=== PATIENT | female | born 1950 | race Caucasian/White ===

== ENCOUNTER 2020-01-02 12:39 | Emergency (ER) | payer MEDICARE, SELFPAY ==
[2020-01-02 12:39] VITALS: BP 165/98; PULSE 88; RESP 16; O2SAT 96
[2020-01-02 12:40] VITALS: BP 165/98; PULSE 87; RESP 23; TEMP 36.8; O2SAT 95; BMI 26.3
--- NOTE | 2020-01-02 13:32 | EKG12_ITS ---
Test Reason : CP Blood Pressure : / mmHG Vent. Rate : 084 BPM Atrial Rate : 084 BPM P-R Int : 148 ms QRS Dur : 088 ms QT Int : 370 ms P-R-T Axes : 061 049 058 degrees QTc Int : 437 ms Normal sinus rhythm Normal ECG Confirmed by JUAN CARLOS GUNDERSON ([id number]), technical editor ALFA CASTELLANOS ([id number] on 01/05/2020 11:01:39 AM Referred By: ROSIBEL Confirmed By:JUAN CARLOS GUNDERSON
[2020-01-02 13:47] LABS: Basophil# 0.04 X10^3/uL; Basophil% 0.4 % (0-1); Eosinophil# 0.11 X10^3/uL; Eosinophils% 1.2 % (0-5); Hematocrit 42.8 % (37-47); Hemoglobin 12.9 g/dL (12.0-15.0); Lymphocyte % 14.4 % (19-41); Mean Corp Hgb Conc 30.1 g/dL (32-36); Mean Corpuscular Hgb 26.4 pg (27.0-32.0); Mean Corpuscular Volume 87.5 fL (81-99); Mean Platelet Vol. 10.4 fl (6.2-12.0); Monocyte# 0.55 X10^3/uL; Monocyte% 6.1 % (0-10); NRBC Flagged by Analyzer 0 % (0-5); Neutrophil # 7.02 X10^3/uL (2.7-7.7); Neutrophil % 77.7 % (47-70); Platelet Count 290 K/mm3 (150-450); RBC Distribution Width CV 14.2 % (11.6-14.6); RBC Distribution Width SD 45.5 fl (35.1-43.9); Red Blood Count 4.89 M/mm3 (4.2-5.4)
[2020-01-02] MEDS: 0.9% Normal Saline 1,000 ML 1000 ML IV (13:48)
[2020-01-02 13:51] LABS: Partial Thromboplast Time 25.4 Seconds (24.1-36.2); Prothrombin Time (Protime)PT. 13.1 SECONDS (11.7-14.9)
--- NOTE | 2020-01-02 14:00 | ED.DCSUM_ITS ---
History of Present Illness Informant: Patient Onset: Weeks Activity at onset: Light Activity Timing: Intermittent, Lasts Quality: Heaviness, Pressure Location: Substernal - without radiation Current Severity: Gone Maximum Severity: Moderate Worsened By: Exertion Relieved By: Rest - after 10 min or so Associated Symptoms: Lightheadedness, - - malasie/weakness. Negative for: Nausea, Vomiting, Diaphoresis, Dyspnea, Cough, Fever, Palpitations Narrative: Patient has been having chest discomfort off and on for several weeks, it is sometimes exertional but not always. This morning she was lifting some lumber from [employer] to try to purchase it, she had significant discomfort and had to stop and rest until it went away, 10-15 minutes. This is been occurring fairly frequently, her last episode was last night. This morning she also had a single bout of melena, she did not see any bright red blood, it looked black and tarry. She does admit to taking some Pepto-Bismol for what felt like heartburn in her upper abdomen/epigastrium earlier in the week with that was for 5 days ago and she just took it once. She does not take iron. She is on no antiplatelet or anticoagulants and has no known history of heart disease, she has had a normal stress test she cannot remember how long ago. She denies any nausea or vomiting. States she is on pantoprazole for hiatal hernia/GERD. Has been feeling malaised and lightheaded without near syncope or syncope for the past week or 2. <Segundo Gross - Last Filed: 01/02/20 15:25> <Amadou Velasquez - Last Filed: 01/02/20 16:31> Chief Complaint: Chest Pain - Past Medical History (1) Hypertension Status: Chronic (2) Hyperlipidemia Status: Chronic (3) Type 2 diabetes mellitus Status: Chronic (4) Hiatal hernia Status: Chronic (5) GERD (gastroesophageal reflux disease) Status: Chronic <Segundo Gross - Last Filed: 01/02/20 15:25> Past Medical History Smoking Status: Never smoker Alcohol: None Drugs: None <Segundo Gross - Last Filed: 01/02/20 15:25> <RonAmadou - Last Filed: 01/02/20 16:31> - Allergies and Home Meds Allergies/Adverse Reactions: Allergies No Known Allergies Allergy (Verified 05/29/20 12:39) Primary Care Physician: Александр Marshall MD [Primary Care Provider] - 3-5 Days Review of Systems General: Reports: Malaise. Denies: Chills, Fever, Sweats Eyes: Denies: Visual changes - bilaterally, Diplopia ENT: Denies: Rhinorrhea, Sore throat Cardiovascular: Reports: Chest pain. Denies: Palpitations, Heart racing Respiratory: Denies: Dyspnea, Cough, Dyspnea on exertion Gastrointestinal: Reports: Melena. Denies: Abdominal pain, Nausea, Vomiting, Diarrhea, Hematochezia Genitourinary: Denies: Dysuria, Hematuria, Frequency Musculoskeletal: Denies: Neck pain, Back pain, Swelling, Extremity Pain Skin: Denies: Rash, Wounds Neurological: Denies: Headache, Weakness, Numbness <Segundo Gross - Last Filed: 01/02/20 15:25> Physical Exam Vital Signs/Narrative: Vital Signs Temp Pulse Resp BP Pulse Ox 01/02/20 12:40 98.2 F 87 23 H 165/98 H 95 01/02/20 12:39 88 16 165/98 H 96 Inital Vital Signs reviewed: Yes General: Well nourished, Well developed, No Acute Distress Head: Normocephalic, Atraumatic Eyes: Perrl, EOMI ENT: Moist mucous membranes, No rhinorrhea Neck: Supple, Nontender, No lymphadenopathy Cardiovascular: Regular rate, Regular rhythm, No murmurs Respiratory: No distress, CTA bilaterally, Chest nontender Abdomen: Soft, Nontender, Nondistended, Normal bowel sounds Back: Nontender, Normal Inspection. Negative for: CVA tenderness Extremities: Nontender, No edema. Negative for: Calf Tenderness Skin: Normal color, No rash Neurological: Alert, Oriented x3, Cranial nerves II-XII grossly intact, Normal Strength, Normal Sensation, Normal Gait Psychological: Normal affect, Normal Mood <Segundo Gross - Last Filed: 01/02/20 15:25> Vital Signs/Narrative: Vital Signs Temp Pulse Resp BP Pulse Ox 01/02/20 15:59 149/79 H 01/02/20 14:45 76 24 H 158/75 H 99 01/02/20 12:40 98.2 F 87 23 H 165/98 H 95 01/02/20 12:39 88 16 165/98 H 96 <Velasquez,Amadou - Last Filed: 01/02/20 16:31> Diagnostic/Tx/Re-eval Impressions Chest X-Ray 01/02/20 14:04 IMPRESSION: Large hiatal hernia. Electronically Signed: Milton Lopez, at 14:21 EDT , Service support , 01/02/20 14:04 Chest 1 View (Portable) [RAD] Stat 01/02/20 14:40 Stool Stool Occult Blood (EVELYNE) - Final Laboratory Results 01/02/20 01/02/20 01/02/20 12:45 12:45 12:45 WBC 9.0 RBC 4.89 Hgb 12.9 Hct 42.8 MCV 87.5 MCH 26.4 L MCHC 30.1 L RDW Std Deviation 45.5 H RDW Coeff of [place] 14.2 Plt Count 290 MPV 10.4 Immature Gran % (Auto) 0.200 Neut % (Auto) 77.7 H Lymph % (Auto) 14.4 L [place] % (Auto) 6.1 Eos % (Auto) 1.2 Baso % (Auto) 0.4 Absolute Neuts (auto) 7.0 Absolute Lymphs (auto) 1.30 Nucleated RBC % 0 PT 13.1 INR 1.0 APTT 25.4 Sodium 142 Potassium 3.8 Chloride 109 H Carbon Dioxide 24.0 Anion Gap 9 BUN 11 Creatinine 0.79 Estim Creat Clear Calc 48.30 Est GFR (MDRD) Af Amer 92 Est GFR (MDRD) Non-Af 76 BUN/Creatinine Ratio 13.9 Glucose 164 H Calcium 9.2 Troponin I < 0.015 POC Glucose Blood Type Antibody Screen 01/02/20 01/02/20 13:45 13:54 WBC RBC Hgb Hct MCV MCH MCHC RDW Std Deviation RDW Coeff of [place] Plt Count MPV Immature Gran % (Auto) Neut % (Auto) Lymph % (Auto) [place] % (Auto) Eos % (Auto) Baso % (Auto) Absolute Neuts (auto) Absolute Lymphs (auto) Nucleated RBC % PT INR APTT Sodium Potassium Chloride Carbon Dioxide Anion Gap BUN Creatinine Estim Creat Clear Calc Est GFR (MDRD) Af Amer Est GFR (MDRD) Non-Af BUN/Creatinine Ratio Glucose Calcium Troponin I POC Glucose 138 H Blood Type B POSITIVE Antibody Screen NEGATIVE - Rhythm Strip Rhythm Strip: Sinus Rhythm Rate: 84 Ectopy: None - EKG Initial EKG Interpretation: Sinus Rhythm, No Acute Injury Pattern Repeat Eval: Pain Free VIVI Risk: Age >/= 65, >/= 3RF Score: 2 - Medical Decision Making Work-up is reassuringly unremarkable. She is not anemic, has no elevation of her BUN, and has a negative Hemoccult stool. With all of this, she unlikely has acute GI bleeding now or earlier this morning. Her EKG and troponin are negative/normal. I discussed with the patient she is feeling well now, still a little lightheaded sometimes when she stands but not near syncopal, we discussed admission versus DC home. She had a nuclear stress test 3 or 4 years ago that was negative. She does not want to stay here in the hospital. Therefore I discussed doing a delta troponin with 2 measurements 3 hours apart, which she is amenable to. If negative, plan is discharge home close outpatient follow-up, unknown if her chest discomfort is related to her large hiatal hernia and reflux or if this is cardiac, it is not always exertional to suggest this is definitely angina. <Segundo Gross - Last Filed: 01/02/20 15:25> - Medical Decision Making Patient presents with atypical chest pain. The pain is not necessarily related to exertion. Patient does have history of GERD on Protonix. Patient's EKG, troponin normal and troponin #2 were both normal with a delta of 0. With atypical presentation normal 3-hour delta troponin will discharge to home to follow-up with PCP for further work-up. <Amadou Velasquez - Last Filed: 01/02/20 16:31> ED Disposition <Segundo Gross - Last Filed: 01/02/20 15:25> <Amadou Velasquez - Last Filed: 01/02/20 16:31> - Plan for ED Patient: Disposition: Home or Assisted Living Diagnosis: Intermittent chest pain, Black stool Instructions: ED Chest Pain Atypical Unkn Cause Referrals: Александр Marshall MD [Primary Care Provider] - 3-5 Days
[2020-01-02 14:01] LABS: Bedside Glucose 138 mg/dL (70-110)
[2020-01-02 14:01] LABS: Anion Gap 9 (5-15); BUN 11 mg/dL (7-18); BUN/Creat Ratio 13.9 RATIO (10-20); Calcium,Total 9.2 mg/dL (8.5-10.1); Chloride 109 mmol/L (98-107); Creatinine, Serum 0.79 mg/dL (0.55-1.02); EST Glomerular Filtration Rate 76 mL/min (>60); Est Glom Filt Rate - Afr Amer 92 mL/min (>60); Glucose 164 mg/dL (74-106); Potassium 3.8 mmol/L (3.5-5.1); Sodium Level 142 mmol/L (136-145)
--- NOTE | 2020-01-02 14:04 | RAD_ITS ---
STUDY: X-RAY CHEST REASON FOR EXAM: Female, 69 years old. EPIGASTRIC MIDLINE CHEST PRESSURE x COUPLE WEEKS TECHNIQUE: Single AP portable view of the chest. COMPARISON: None. FINDINGS: EKG electrodes are seen. Hyperinflation. The lungs are clear. There is no demonstrated pleural abnormality. Normal size heart. Normal mediastinum and michelle. Normal visualized pulmonary arteries. Normal visualized aortic arch and descending thoracic aorta. Normal visualized thoracic spine. There is a 3.5 cm x 1.5 cm sclerotic abnormality in the proximal metaphysis of the left humerus most likely representing chondroid calcification or healed bone infarct. Large hiatal hernia. RAD/Chest 1 View (Portable) IMPRESSION: Large hiatal hernia. Electronically Signed: Milton Lopez, at 14:21 EDT , Service support ,
[2020-01-02 14:45] VITALS: BP 158/75; PULSE 76; RESP 24; O2SAT 99
[2020-01-02 15:59] VITALS: BP 149/79
== END 2020-01-02 16:50 | disposition home or self-care (01) ==
PROVIDERS: Emergency Medicine; Emergency Provider Emergency Medicine; PCP Family Medicine
DX: R07.89 Other chest pain (principal); R19.5 Other fecal abnormalities; R53.81 Other malaise; R42 Dizziness and giddiness; E11.9 Type 2 diabetes mellitus without complications; K21.9 Gastro-esophageal reflux disease without esophagitis
CPT/HCPCS: 71045; 80048; 82274; 82962; 84484; 85025; 85610; 85730; 86850; 86900; 86901; 93005; 96360; 96361; 99284; J7030; A4216